=== PATIENT | male | born 1970 | race Caucasian/White ===

== ENCOUNTER 2016-07-18 11:10 | Emergency (ER) | payer BC ==
--- NOTE | 2016-07-18 11:49 | UC ---
Respiratory Complaint HPI - HPI Summary HPI Summary: The patient comes in today for: 1. Fever, chills, rattling chest, cough: Onset: 2 days ago. Palliative/provocative: "Being in front of the wood stove." Quality: rattling chest cough. Region: Chest. Severity: 0/10 Time: Cough lasts a few seconds. 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 He did not take any medication for fever. Rhinitis: Present-yellowish. Sinus pressure: Present "time to time." Cough: Present, but non-productive. Sore throat: None. Body aches: Present. Nocturnal: None. Inhaler use: He has used one before years ago. He states that he wants a Z-pack. * - History of Current Complaint Chief Complaint: UCRespiratory Stated Complaint: FEVER,COUGH,CHEST RATTLING Time Seen by Provider: 07/18/16 11:44 Hx Obtained From: Patient - Allergies/Home Medications Allergies/Adverse Reactions: Allergies Allergy/AdvReac Type Severity Reaction Status Date / Time No Known Allergies Allergy Verified 07/18/16 11:31 Home Medications: Home Medications Esomeprazole(NF) [NEXium(NF)] 20 mg PO DAILY 07/18/16 [History Confirmed ] PMH/Surg Hx/FS Hx/Imm Hx Previously Healthy: No Endocrine History Of: Denies: Diabetes, Thyroid Disease, Hyperthyroidism, Hypothyroidism, Dyslipidemia Cardiovascular History Of: Denies: Cardiac Disorders, Hypertension, Pacemaker/ICD, Myocardial Infarction , Congestive Heart Failure, Atrial Fibrillation, Deep Vein Thrombosis, Bleeding Disorders Respiratory History Of: Reports: Asthma - Has used inhalers in the past. Denies: COPD, Bronchitis, Pneumonia, Pulmonary Embolism GI/ History Of: Reports: Gastroesophageal Reflux - ued Denies: Ulcer, Gastrointestinal Bleed, Gall Bladder Disease, Kidney Stones, Diverticulitis, Renal Disease, Urosepsis Neurological History Of: Denies: TIA, CVA, Dementia, Seizures, Migraine Psychological History Of: Denies: Anxiety, Depression, Bipolar Disorder, Schizophrenia, Post Traumatic Stress Disorder Cancer History Of: Denies: Lung Cancer, Colorectal Cancer, Breast Cancer, Prostate Cancer, Cervical Cancer Other History Of: Negative For: HIV, Hepatitis C, Anticoagulant Therapy - Surgical History Surgical History: None - Family History Known Family History: Positive: Other - Mother has emphysema. Negative: Cardiac Disease, Hypertension - Social History Occupation: Employed Full-time Alcohol Use: Occasionally Alcohol Amount: 4 drinks tonight Substance Use Type: None Smoking Status (MU): Former Smoker When Did the Patient Quit Smoking/Using Tobacco: ~2010 - Immunization History Most Recent Influenza Vaccination: Not the Season Review of Systems Constitutional: Negative Skin: Negative Eyes: Negative ENT: Negative Respiratory: Cough Cardiovascular: Negative Gastrointestinal: Negative Genitourinary: Negative All Other Systems Reviewed And Are Negative: Yes Physical Exam Triage Information Reviewed: Yes Appearance: Well-Appearing, No Pain Distress, Well-Nourished Vital Signs: Initial Vital Signs Temp 98.7 F 07/18/16 11:30 Pulse 100 07/18/16 11:30 Resp 16 07/18/16 11:30 BP 149/107 07/18/16 11:30 Pulse Ox 99 07/18/16 11:30 Vital Signs Reviewed: Yes Eyes: Positive: Conjunctiva Clear. Negative: Discharge ENT: Positive: Hearing grossly normal. Negative: Pharyngeal erythema, Nasal congestion, Nasal drainage, TM bulging, TM dull, TM red, Tonsillar swelling, Tonsillar exudate Dental: Negative: Gross Decay/Caries @, Dental Fracture @ Neck: Positive: Supple, Nontender, No Lymphadenopathy. Negative: Nuchal Rigidity Respiratory: Positive: Chest non-tender, No respiratory distress, No accessory muscle use, Rhonchi - Few scattered., Wheezing - Few scattered.. Negative: Crackles Cardiovascular: Positive: RRR, No Murmur Abdomen Description: Positive: Nontender, No Organomegaly, Soft Musculoskeletal: Positive: Strength Intact, ROM Intact, No Edema Neurological: Positive: Alert, Muscle Tone Normal Psychological: Positive: Age Appropriate Behavior, Consolable Skin: Negative: rashes, breakdown UC Diagnostic Evaluation - Laboratory O2 Sat by Pulse Oximetry: 99 Respiratory Course/Dx - Course Course Of Treatment: Patient told that I did not think antibiotics would be helpful at this time. But he stated that he wants Zithromax. He was told that albuterol inhaler may help. He states that he would like to have this available to him. - Differential Dx/Diagnosis Differential Diagnosis/HQI/PQRI: Bronchitis, Laryngitis, Sinusitis Provider Diagnoses: Upper respiratory infection. Bronchitis. Bronchospasm. Discharge - Discharge Plan Condition: Stable Disposition: HOME Patient Education Materials: Upper Respiratory Infection (ED), Bronchospasm (ED ) Forms: *Work Release Referrals: Kamille Mir MD [Primary Care Provider] -
[2016-07-18 12:21] VITALS: BP 148/103
== END 2016-07-18 12:21 | disposition home or self-care (01) ==
LOC: UCCORT 11:10
DX: J06.9 Acute upper respiratory infection, unspecified (principal); J20.9 Acute bronchitis, unspecified; Z87.891 Personal history of nicotine dependence
CPT/HCPCS: 99212; G0463